=== PATIENT | female | born 1995 | race Caucasian/White ===

== ENCOUNTER 2018-02-15 23:21 | Emergency (ER) | payer OTHER ==
[~2018-02-15] VITALS: Ht 157.5 cm; Wt 81.6 kg
[2018-02-15 23:38] VITALS: BP 119/64
== END 2018-02-16 00:14 | disposition home or self-care (01) ==
LOC: ER 23:23
DX: O26.891 Other specified pregnancy related conditions, first trimester (principal); H66.91 Otitis media, unspecified, right ear; Z3A.13 13 weeks gestation of pregnancy
CPT/HCPCS: 99283; A4606; Z7610

== ENCOUNTER 2021-11-21 22:39 | Emergency (ER) | payer OTHER ==
[~2021-11-21] VITALS: Ht 157.5 cm; Wt 96.2 kg
[2021-11-22 02:45] VITALS: BP 131/78
== END 2021-11-22 01:00 | disposition home or self-care (01) ==
LOC: ER 22:47
DX: O20.0 Threatened abortion (principal); Z3A.10 10 weeks gestation of pregnancy
CPT/HCPCS: 36415; 76805-TC; 84702-TC